=== PATIENT | female | born 1990 | race Hispanic/Latino ===

== ENCOUNTER → 2017-12-11 | Day surgery (SDC) | payer BC ==
[~2017-12-11] MED LIST: FENTANYL CITRATE/PF 100MCG/2 ML INJ ONE; HYOSCYAMINE SULFATE 0.5 MG/ML INJ ONE; LINZESS PO; METOCLOPRAMIDE HCL 10 MG/2ML VIAL ONE; MIDAZOLAM HCL 2 MG/2 ML VIAL ONE; PANTOPRAZOLE 40 MG 10ML VIAL ONE; PROPOFOL IV EMULSION 10 MG/ML 20 ML VIAL ONE; SODIUM CHLORIDE 0.9% 50ML 50 ML ONE; [UNRECOGNIZED DRUG - OTHER] PO
[2017-12-11 16:20] VITALS: BP 108/71
--- NOTE | 2017-12-11 16:40 | Operative Report ---
DATE OF PROCEDURE: December 11, 2017 PROCEDURE PERFORMED: Esophagogastroduodenoscopy with biopsies and a colonoscopy with polypectomy and biopsies. INDICATIONS FOR ESOPHAGOGASTRODUODENOSCOPY: Upper abdominal pain and nausea. INDICATIONS FOR COLONOSCOPY: Bright red blood per rectum. Constipation. MEDICATION: Patient was done under MAC. Please see anesthesiologist's note. PROCEDURE: With the patient in the left lateral decubitus position, flexible fiberoptic Olympus gastroscope was introduced into the esophagus under direct visualization without any difficulty. There was some patchy erythema noted in distal esophagus. The scope was then advanced with ease into the stomach traversing a small sliding hiatal hernia. Mucosa overlying the antrum and the body revealed some patchy erythema and mild to moderate edema and biopsies were obtained and sent to stain for H. pylori. There was a minute submucosal nodule that was biopsied in the body of the stomach. Pylorus appeared to be of normal contour and shape. Was intubated with ease and the scope was advanced all the way to the 2nd portion of the duodenum. The scope was then withdrawn slowly and biopsies were obtained from the proximal 2nd portion to rule out sprue. Mucosa overlying the duodenal bulb appeared to be within normal limits. The scope was then withdrawn back into the stomach and retroflexed and mucosa overlying the fundus and cardia appeared to be within normal limits. The scope was then straightened out. Stomach was decompressed. Scope was subsequently withdrawn. Patient tolerated the procedure well. IMPRESSION: 1. Distal esophagitis. 2. Small sliding hiatal hernia. 3. Gastritis biopsied, biopsy sent to stain for H. pylori. 4. Submucosal nodule body biopsied. 5. Rule out sprue. PLAN: Follow up histology. Initiate Protonix 40 mg 1 p.o. q.a.m. a.c. PROCEDURE: Patient was then turned around and after adequate lubrication of the anal canal a flexible fiberoptic Olympus colonoscope was inserted into the rectum with ease and advanced all the way to the cecum. Prep was suboptimal in the right colon despite extensive washings, but no obvious obstructing or constricting lesions were noted in the cecum or the ascending colon. The transverse grossly as well as the descending appeared to be within normal limits. There were some patchy areas of erythema and mild to moderate edema noted in the sigmoid colon. Biopsies were obtained. A cluster of hyperplastic appearing polyps were noted in the proximal rectum and some were removed per hot biopsy forceps. The scope was then retroflexed into the distal rectum and the area around the dentate line appeared to be within normal limits. The scope was then straightened out. Was subsequently withdrawn. Patient tolerated procedure well. IMPRESSION 1. Suboptimal prep, right colon. 2. Segmental colitis, mild, sigmoid colon. Biopsies obtained. 3. Cluster of hyperplastic appearing polyps proximal rectum. Some removed per hot biopsy forceps. PLAN: Follow up histology. Check TSH. Initiate VSL#3 one p.o. b.i.d. Timing of followup colonoscopy pending pathology report. Job#: [id number]
--- OUTSIDE RECORDS SUMMARY | 2017-12-16 13:00 | XMS REPORT ---
Author Author THUAN TRACEY [facility] eClinicalWorks Address Unknown Phone Unavailable Care Team Providers Care Barrel Ribs Solderer Name Role Phone THUAN TRACEY CP Unavailable Allergies No Known Allergies Problems Problem Type Condition Code Onset Dates Condition Status Problem Abdominal pain, generalized 789.07 Active Problem S/P cholecystectomy Z90.49 Active Medications No Known Medications Results No Known Results Summary Purpose eClinicalWorks Submission
--- OUTSIDE RECORDS SUMMARY | 2017-12-16 13:00 | XMS REPORT ---
Author Author THUAN TRACEY [facility] eClinicalWorks Address Unknown Phone Unavailable Care Team Providers Care Workforce Development Vice President Name Role Phone THUAN TRACEY Unavailable Allergies No Known Allergies Problems Problem Type Condition Code Onset Dates Condition Status Problem Abdominal pain, generalized 789.07 Active Problem S/P cholecystectomy Z90.49 Active Medications Medication Code System Code Instructions Start Date End Date Status Dosage Levsin [facility] 99913875834 0.125 mg orally 4 times a day Dec 20, 2016 Active 1 tab(s) Results No Known Results Summary Purpose eClinicalWorks Submission
--- OUTSIDE RECORDS SUMMARY | 2017-12-16 13:00 | XMS REPORT | Clinical Summary ---
Author Author [facility] Address Unknown Phone Unavailable Care Team Providers Care Truss Driver Helper Name Role Phone Asked, None Given PCP Unavailable Allergies Active Allergy Reactions Severity Noted Date Comments Penicillins Hives 10/01/2016 Current Medications No known medications Active Problems Not on file Social History Tobacco Use Types Packs/Day Years Used Date Never Smoker Alcohol Use Drinks/Week oz/Week Comments Yes Sex Assigned at Date Recorded Not on file Last Filed Vital Signs Not on file Plan of Treatment Health Maintenance Due Date Last Done Comments CERVICAL CANCER SCREENING 2011 INFLUENZA VACCINE 10/01/2017 Results Not on fileafter 12/10/2016 Insurance Payer Benefit Subscriber ID Type Phone Address Plan / Group AETNA AETNA xxxxxxxxxx HMO HMO,POS,EP O, [place] Home: [place] Personal/F Self 1990 Home: [address] [place] [address]
--- OUTSIDE RECORDS SUMMARY | 2017-12-16 13:00 | XMS REPORT ---
Author Author THUAN TRACEY [facility] eClinicalWorks Address Unknown Phone Unavailable Care Team Providers Care Gear Cutting Machine Operator Name Role Phone THUAN TRACEY Unavailable Allergies, Adverse Reactions, Alerts Substance Reaction Event Type penicillin Info Not Available Drug Allergy Problems Problem Type Condition Code Onset Dates Condition Status Problem Slow transit constipation K59.01 Active Problem S/P cholecystectomy Z90.49 Active Problem Irritable bowel syndrome with constipation K58.1 Active Assessment LFT elevation R94.5 Active Problem Abdominal pain, generalized 789.07 Active Assessment Irritable bowel syndrome with constipation K58.1 Active Medications Medication Code System Code Instructions Start Date End Date Status Dosage Linzess NDC 69132316690 72 mcg orally once a day Oct 29, 2017 Active 1 cap(s) Librax NDC 08867018404 5 mg-2.5 mg orally 4 times a day (before meals and at bedtime) Oct 29, 2017 Active 1 cap(s) Vital Signs Date/Time: Oct 29, 2017 Blood Pressure Systolic 0000 mm Hg Weight 122 lbs Height 5'1 in Results No Known Results Summary Purpose eClinicalWorks Submission
--- OUTSIDE RECORDS SUMMARY | 2017-12-16 13:00 | XMS REPORT ---
Author Author THUAN TRACEY [facility] eClinicalWorks Address Unknown Phone Unavailable Care Team Providers Care E Mail System Administrator Name Role Phone THUAN TRACEY CP Unavailable Allergies No Known Allergies Problems Problem Type Condition Code Onset Dates Condition Status Problem Slow transit constipation K59.01 Active Problem S/P cholecystectomy Z90.49 Active Problem Irritable bowel syndrome with constipation K58.1 Active Problem Abdominal pain, generalized 789.07 Active Medications No Known Medications Results No Known Results Summary Purpose eClinicalWorks Submission
--- OUTSIDE RECORDS SUMMARY | 2017-12-16 13:00 | XMS REPORT ---
Author Author THUAN TRACEY [facility] eClinicalWorks Address Unknown Phone Unavailable Care Team Providers Care Facilities Clerk Name Role Phone THUAN TRACEY CP Unavailable [...]
--- OUTSIDE RECORDS SUMMARY | 2017-12-16 13:00 | XMS REPORT ---
Author Author THUAN TRACEY [facility] eClinicalWorks Address Unknown Phone Unavailable Care Team Providers Care Tape Rules Printing Machine Operator Name Role Phone THUAN TRACEY Unavailable Allergies, Adverse Reactions, Alerts Substance Reaction Event Type penicillin Info Not Available Drug Allergy Problems Problem Type Condition Code Onset Dates Condition Status Problem S/P cholecystectomy Z90.49 Active Problem Abdominal pain, generalized 789.07 Active Problem Slow transit constipation K59.01 Active Assessment Epigastric pain R10.13 Active Assessment Slow transit constipation K59.01 Active Medications Medication Code System Code Instructions Start Date End Date Status Dosage hyoscyamine NDC 80993192522 0.125 mg orally 4 times a day Feb 19, 2017 Active 1 tab(s) Levsin NDC 99214570056 0.125 mg orally 4 times a day Dec 20, 2016 Active 1 tab(s) Vital Signs Date/Time: Feb 19, 2017 Blood Pressure Systolic 122 mm Hg Weight 112 lbs Height 5'1 in Blood Pressure Diastolic 70 mm Hg Results No Known Results Summary Purpose eClinicalWorks Submission
--- OUTSIDE RECORDS SUMMARY | 2017-12-16 13:00 | XMS REPORT ---
Author Author THUAN TRCAEY Organization eClinicalWorks Address Unknown Phone Unavailable Care Team Providers Care Printed Circuit Boards Solder Leveler Name Role Phone THUAN TRACEY CP Unavailable Allergies No Known Allergies Problems Problem Type Condition Code Onset Dates Condition Status Problem S/P cholecystectomy Z90.49 Active Problem Abdominal pain, generalized 789.07 Active Problem Slow transit constipation K59.01 Active Medications No Known Medications Results No Known Results Summary Purpose eClinicalWorks Submission
--- OUTSIDE RECORDS SUMMARY | 2017-12-16 13:00 | XMS REPORT | Continuity of Care Document ---
Author Author [facility] Address Unknown Phone Unavailable Problems Problem Status Onset Date Classification Date Reported Comments Source Abdominal pain, generalized Active Problem 11/20/2017 [facility] S/P cholecystectomy Active Problem 11/20/2017 [facility] Slow transit constipation Active Problem 11/20/2017 [facility] Irritable bowel syndrome with constipation Active Problem 11/20/2017 [facility] Upper abdominal pain Active Diagnosis 02/17/2017 [facility] Abnormal AST and ALT Active Diagnosis 03/14/2017 [facility] LFT elevation Active Diagnosis 11/01/2017 [facility] Epigastric pain Active Diagnosis 02/25/2017 [facility] Medications Medication Details Route Status Patient Instructions Ordering Provider Order Date Source Zofran 1 tab(s) orally Active 4 mg orally every 6 hours prn [facility] 11/13/2017 [facility] hyoscyamine 1 tab(s) orally Active 0.125 mg orally every 4 hours (TID AC and HS) [facility] 11/13/2017 [facility] Linzess 1 cap(s) orally Active 145 mcg orally once a day [facility] 11/13/2017 [facility] Linzess 1 cap(s) orally Active 72 mcg orally once a day [facility] 10/29/2017 [facility] Librax 1 cap(s) orally Active 5 mg-2.5 mg orally 4 times a day (before meals and at bedtime) [facility] 10/29/2017 [facility] hyoscyamine 1 tab(s) orally Active 0.125 mg orally 4 times a day [facility] 02/19/2017 [facility] Levsin 1 tab(s) orally Active 0.125 mg orally 4 times a day [facility] 12/20/2016 [facility] control pill not defined NA Active [facility] metoclopramide 1 tab(s) orally Active 5 mg orally 4 times a day (before meals and at bedtime) [facility] hyoscyamine 1 tab(s) sublingually Active 0.125 mg sublingually every 4 hours [facility] control pill as directed NA Active as directed [facility] tramadol 1 tab(s) orally Active 50 mg orally every 4 hours [facility] Allergies, Adverse Reactions, Alerts Substance Category Reaction Severity Reaction type Status Date Reported Comments Source penicillin Adverse Reaction Info Not Available Adverse Reaction Active 11/13/2017 [facility] Immunizations Immunization Date Given Site Status Last Updated Comments Source Results Order Name Results Value Reference Range Date Interpretation Comments Source Vital Signs Vital Sign Value Date Comments Source Systolic (mm Hg) 0 11/13/2017 [facility] Weight 120 11/13/2017 [facility] Systolic (mm Hg) 0 10/29/2017 [facility] Weight 122 10/29/2017 [facility] Systolic (mm Hg) 122 02/19/2017 [facility] Weight 112 02/19/2017 [facility] Diastolic (mm Hg) 70 02/19/2017 [facility] Systolic (mm Hg) 122 12/17/2016 [facility] Weight 112 12/17/2016 [facility] Diastolic (mm Hg) 80 12/17/2016 [facility] Weight 113 05/12/2013 [facility] Encounters Location Location Details Encounter Type Encounter Number Reason For Visit Attending Provider ADM Date DC Date Status Source [facility] abd pain [id number] 05/12/2013 05/12/2013 [facility] abd pain [id number] 05/12/2013 05/12/2013 [facility] Unknown [id number] 05/26/2013 05/26/2013 [facility] Procedures Procedure Code Date Perfomer Comments Source
--- OUTSIDE RECORDS SUMMARY | 2017-12-16 13:00 | XMS REPORT ---
Author Author THUAN TRACEY Organization eClinicalWorks Address Unknown Phone Unavailable Care Team Providers Care Ditch Tender Name Role Phone THUAN TRACEY CP Unavailable Allergies, Adverse Reactions, Alerts Substance Reaction Event Type penicillin Info Not Available Drug Allergy Problems Problem Type Condition Code Onset Dates Condition Status Problem Abdominal pain, generalized 789.07 Active Assessment Upper abdominal pain R10.10 Active Problem S/P cholecystectomy Z90.49 Active Medications Medication Code System Code Instructions Start Date End Date Status Dosage control pill NDC 0 Active not defined Vital Signs Date/Time: Dec 17, 2016 Blood Pressure Systolic 122 mm Hg Weight 112 lbs Height 5'1 in Blood Pressure Diastolic 80 mm Hg Results No Known Results Summary Purpose eClinicalWorks Submission
--- OUTSIDE RECORDS SUMMARY | 2017-12-16 13:00 | XMS REPORT ---
Author Author THUAN TRACEY [facility] eClinicalWorks Address Unknown Phone Unavailable Care Team Providers Care Earth Science Faculty Member Name Role Phone THUAN TRACEY CP Unavailable Allergies No Known Allergies Problems Problem Type Condition Code Onset Dates Condition Status Problem S/P cholecystectomy Z90.49 Active Problem Abdominal pain, generalized 789.07 Active Problem Slow transit constipation K59.01 Active Assessment Abnormal AST and ALT R74.8 Active Medications No Known Medications Results No Known Results Summary Purpose eClinicalWorks Submission
--- OUTSIDE RECORDS SUMMARY | 2017-12-16 13:00 | XMS REPORT ---
Author Author THUAN TRACEY [facility] eClinicalWorks Address Unknown Phone Unavailable Care Team Providers Care Drum Loader And Unloader Name Role Phone THUAN TRACEY CP Unavailable [...]
--- OUTSIDE RECORDS SUMMARY | 2017-12-16 13:00 | XMS REPORT ---
Author Author THUAN TRACEY Organization eClinicalWorks Address Unknown Phone Unavailable Care Team Providers Care Telemarketing Manager Name Role Phone THUAN TRACEY Unavailable Allergies, Adverse Reactions, Alerts Substance Reaction Event Type penicillin stomach upset Non Drug Allergy Encounters Encounter Location Date abd pain [facility] May 12, 2013 Problems Problem Type Condition ICD-9 Code Onset Dates Condition Status Assessment Abdominal pain, generalized 789.07 Active Problem Abdominal pain, generalized 789.07 Active Medications Medication Code System Code Instructions Start Date End Date Status Dosage metoclopramide MULTUM 78274 5 mg orally 4 times a day (before meals and at bedtime) Active 1 tab(s) hyoscyamine MULTUM 16603 0.125 mg sublingually every 4 hours Active 1 tab(s) control pill Unknown 0 as directed Active as directed tramadol MULTUM 68354 50 mg orally every 4 hours Active 1 tab(s) Social History Social History Element Qualifiers Date Reported Alcohol yes. Type: occas Frequency: Years: Determination: May 12, 2013 Smoking . Status Never Smoker May 12, 2013 Family history Qualifier Description Comment Date Reported Mother alive Comment not available May 12, 2013 Father alive Comment not available May 12, 2013 Vital Signs Date/Time: May 12, 2013 Weight 113 lbs Summary Purpose eClinicalWorks Submission
--- OUTSIDE RECORDS SUMMARY | 2017-12-16 13:00 | XMS REPORT ---
Author Author THUAN TRACEY [facility] eClinicalWorks Address Unknown Phone Unavailable Care Team Providers Care Campground Manager Name Role Phone THUAN TRACEY CP Unavailable Allergies No Known Allergies Problems Problem Type Condition Code Onset Dates Condition Status Problem Abdominal pain, generalized 789.07 Active Assessment Upper abdominal pain R10.10 Active Problem S/P cholecystectomy Z90.49 Active Assessment S/P cholecystectomy Z90.49 Active Medications No Known Medications Results No Known Results Summary Purpose eClinicalWorks Submission
--- OUTSIDE RECORDS SUMMARY | 2017-12-16 13:00 | XMS REPORT ---
Author Author THUAN TRACEY Organization eClinicalWorks Address Unknown Phone Unavailable Care Team Providers Care Mold Car Pusher Name Role Phone THUAN TRACEY Unavailable Allergies, [...] Instructions Start Date End Date Status Dosage Zofran NDC 35384045972 4 mg orally every 6 hours prn Nov 13, 2017 Active 1 tab(s) Linzess NDC 49775468651 72 mcg orally once a day Oct 29, 2017 Active 1 cap(s) hyoscyamine NDC 43914215293 0.125 mg orally every 4 hours (TID AC and HS) Nov 13, 2017 Active 1 tab(s) Linzess NDC 72838239465 145 mcg orally once a day Nov 13, 2017 Active 1 cap(s) Vital Signs Date/Time: Nov 13, 2017 Blood Pressure Systolic 90339 mm Hg Weight 120 lbs Height 5'1 in Results No Known Results Summary Purpose eClinicalWorks Submission
--- OUTSIDE RECORDS SUMMARY | 2017-12-16 13:00 | XMS REPORT ---
Author Author THUAN TRACEY [facility] eClinicalWorks Address Unknown Phone Unavailable Care Team Providers Care Guidance Counselor Name Role Phone THUAN TRACEY Unavailable Encounters Encounter Location Date abd pain [facility] May 12, 2013 Unknown [facility] May 26, 2013 Problems Problem Type Condition ICD-9 Code Onset Dates Condition Status Problem Abdominal pain, generalized 789.07 Active Social History Social History Element Qualifiers Date Reported Alcohol yes. Type: occas Frequency: Years: Determination: May 12, 2013 Smoking . Status Never Smoker May 12, 2013 Vital Signs Date/Time: May 12, 2013 Weight 113 lbs Summary Purpose eClinicalWorks Submission
== END | disposition home or self-care (01) ==
LOC: OR 11:51
PROVIDERS: ATTEND Internal Medicine Gastroenterology
DX: K29.70 Gastritis, unspecified, without bleeding (principal); K62.1 Rectal polyp; K50.10 Crohn's disease of large intestine without complications; K31.89 Other diseases of stomach and duodenum; K59.00 Constipation, unspecified; K20.9 Esophagitis, unspecified; K44.9 Diaphragmatic hernia without obstruction or gangrene; N20.0 Calculus of kidney; Z80.0 Family history of malignant neoplasm of digestive organs; Z88.0 Allergy status to penicillin; Z90.49 Acquired absence of other specified parts of digestive tract
CPT/HCPCS: 36415; 43239; 45380; 45384; 81025; 84443; J1980; J2250; J2765